=== PATIENT | female | born 2000 | race Caucasian/White ===

== ENCOUNTER 2020-04-03 23:32 | Inpatient (IN) | payer MEDICAID ==
[~2020-04-03] VITALS: Ht 160 cm; Wt 54.5 kg
[2020-04-04] VITALS (9 sets, daily range): BP systolic 93–109; BP diastolic 50–69
[2020-04-04] MEDS ORDERED: LAMO100T PO (00:08)
[2020-04-04] MEDS ORDERED: normal saline 1000ML IV soln IV ONE (00:10)
[2020-04-04] MEDS ORDERED: tamsulosin 0.4mg capsule PO SCH (00:10)
[2020-04-04] MEDS ORDERED: tamsulosin 0.4mg capsule PO ONE (00:10)
[2020-04-04] MEDS ORDERED: meperidine/PF 50mg/ml syringe IV PRN (00:10)
[2020-04-04] MEDS ORDERED: acetaminophen 325mg tablet PO PRN (00:15)
[2020-04-04] MEDS ORDERED: magnesium 4gm in 100ml NS 100 ML IV PRN (00:15)
[2020-04-04] MEDS ORDERED: magnesium Cl slow-release 64mg tablet PO PRN (00:15)
[2020-04-04] MEDS: normal saline 1000ml 1,000 ML IV SCH ×3 (00:15→20:15)
[2020-04-04] MEDS ORDERED: magnesium 2GM in 50ml NS 50 ML IV PRN (00:15)
[2020-04-04] MEDS ORDERED: ondansetron/PF 4mg/2ml inj IV PRN ×2 (00:15→13:10)
[2020-04-04] MEDS ORDERED: potassium CL 10mEq/100ml bag 100 ML IV PRN ×2 (00:15)
[2020-04-04] MEDS ORDERED: magnesium hydroxide 30ml (MOM) UD suspension PO PRN (00:15)
[2020-04-04] MEDS ORDERED: mag hydrox/Alum hydrox/simeth 30ml oral suspension PO PRN (00:15)
[2020-04-04] MEDS ORDERED: potassium Cl 20 mEq SR tablet PO PRN ×2 (00:15)
[2020-04-04 00:37] LABS: BASOPHILS % (AUTO) 0.3 % (0-1); EOSINOPHILS % (AUTO) 0.2 % (0-6); HEMATOCRIT 32.7 % (35.0-45.0); HEMOGLOBIN 10.9 g/dl (12.0-16.0); LYMPHOCYTES # (AUTO) 1.7 X10'3 (1.1-4.8); LYMPHOCYTES % (AUTO) 15.9 % (21-51); MEAN CORPUSCULAR HEMOGLOBIN 29.3 PG (27.0-31.0); MEAN CORPUSCULAR HGB CONC 33.4 g/dL (33.0-36.5); MEAN CORPUSCULAR VOLUME 87.8 FL (78-98); MONOCYTES # (AUTO) 0.9 X10'3 (0-0.9); MONOCYTES % (AUTO) 8.4 % (2-12); NEUTROPHILS # (AUTO) 8.1 X10'3 (1.8-7.7); NEUTROPHILS % (AUTO) 75.2 % (42-75); PLATELET COUNT 269 X10'3 (140-440); RED BLOOD COUNT 3.72 X10'6 (4.20-5.60); RED CELL DISTRIBUTION WIDTH 13.1 % (11.5-14.5); WHITE BLOOD COUNT 10.7 X10'3 (4.5-11.0)
[2020-04-04 00:52] LABS: ALANINE AMINOTRANSFERASE 11 U/L (12-78); ALBUMIN/GLOBULIN RATIO 0.9 (1.1-1.5); ALKALINE PHOSPHATASE 68 IU/L (46-116); ANION GAP 9 (8-16); ASPARTATE AMINO TRANSFERASE 11 U/L (10-37); BILIRUBIN,TOTAL 0.8 MG/DL (0.1-1.0); BLOOD UREA NITROGEN 8 MG/DL (7-18); BUN/CREATININE RATIO 13.3 (6.6-38.0); CALCIUM 8.1 MG/DL (8.5-10.1); CHLORIDE 102 MMOL/L (99-107); GLUCOSE 85 MG/DL (70-104); MAGNESIUM 1.6 MG/DL (1.5-2.4); POTASSIUM 3.4 MMOL/L (3.5-5.1); SODIUM 134 MMOL/L (135-145); TOTAL CARBON DIOXIDE 22.7 MMOL/L (24-32); TOTAL PROTEIN 6.4 G/DL (6.4-8.2); eGFR > 90 ML/MIN
[2020-04-04 01:00] LABS: CLARITY,URINE CLEAR (Clear); COLOR,URINE YELLOW (Yellow); GLUCOSE, URINE NEGATIVE (Neg); KETONES,URINE >=80 mg/dl (Neg); LEUKOCYTE ESTERASE ,URINE MODERATE (Neg); NITRITES, URINE NEGATIVE (Neg); OCCULT BLOOD,URINE SMALL (Neg); PROTEIN,URINE NEGATIVE (Neg); UROBILINOGEN,URINE 0.2 E.U/dL (0.2-1.0)
[2020-04-04 01:02] LABS: UA COLLECTION TYPE CLN CATCH MIDSTREAM
[2020-04-04 01:08] LABS: BACTERIA,URINE 2+ /HPF (Neg); MUCUS STRANDS MODERATE /LPF (Neg); RBC,URINE 0-2 /HPF (0-2); SQUAMOUS EPITHELIAL CELL,UR FEW /LPF (FEW); WBC,URINE TNTC /HPF (0-4)
[2020-04-04] MEDS ORDERED: potassium Cl 10 mEq/100mL bag IV ONE (01:20)
[2020-04-04] MEDS ORDERED: magnesium 2GM in 50ml NS 50 ML IV ONE (01:20)
[2020-04-04] MEDS: K and/or MAG REPLACEMENT MC SCH ×2 (08:00→20:00)
[2020-04-04] MEDS: lamoTRIgine 100mg tablet PO SCH (08:00)
[2020-04-04] MEDS: CefTRIAXone/D5W-Rocephin 1gm 50 ML IV SCH (08:18)
[2020-04-04 10:34] LABS: PARTIAL THROMBOPLASTIN TIME 33 SECONDS (22-32)
--- NOTE | 2020-04-04 10:36 | NUR ---
Attempted to get report from ER on patient. Nurse is busy and will call back.
[2020-04-04] MEDS: HYDROmorphone inj. 0.5 MG/0.5 ML DISP.SYRIN IV PRN (11:37)
[2020-04-04] MEDS ORDERED: normal saline 1000ml 1,000 ML IV ONE (12:40)
[2020-04-04] MEDS ORDERED: ringers solution, lacted 1,000 ML IV SCH (13:10)
[2020-04-04] MEDS ORDERED: proCHLORperazine 10 MG/2 ml inj IV PRN (13:10)
[2020-04-04] MEDS ORDERED: meperidine/PF 25mg/ml syringe IV PRN ×3 (13:10)
[2020-04-04] MEDS ORDERED: morphine 2 MG/ML inj. syringe IV PRN (13:10)
[2020-04-04] MEDS ORDERED: morphine 4 MG/ML inj SYRINge IV PRN (13:10)
[2020-04-04 13:47] LABS: PREOP URINE HCG NEGATIVE (NEGATIVE)
--- NOTE | 2020-04-04 14:09 | NUR ---
Urine sample obtained and sent to lab.
[2020-04-04] MEDS ORDERED: iohexol 300 MG/1 ML 50ml polymer ONE (14:32)
[2020-04-04] MEDS ORDERED: fentaNYL/PF 50MCG/1 ML 2ML syringe ONE (15:19)
[2020-04-04] MEDS ORDERED: midazolam 2 mg/2 ml injection ONE (15:19)
[2020-04-04] MEDS ORDERED: propofol inj 20 ML IV ONE (15:52)
[2020-04-04] MEDS ORDERED: LIDOcaine 2% (20mg/ml) 5ml vial ONE (15:52)
--- NOTE | 2020-04-04 16:37 | NUR ---
RECEIVED FROM OR VIA BED ACCOMPANIED BY ANESTHESIOLOGIST DR BOSTON, REPORT GIVEN. PT DROWSY BUT AROUSES WITH NO COMPLAINT OF PAIN. 18 GAUGE PIV R AC PATENT AND RUNNING LR AT 25 ML/HR. BAUTISTA,ABD SOFT, PPULSES PALPABLE, BRISK CAP REFILL, SKIN PINK AND WARM, SCDS APPLIED, VSS, RESTING COMFORTABLY.
--- NOTE | 2020-04-04 17:22 | NUR ---
Patient arrived on the unit from OR
--- NOTE | 2020-04-04 17:27 | NUR ---
TRANSPORTED VIA BED ACCOMPANIED BY MYSELF, REPORT GIVEN. PT AWAKE AND ALERT WITH NO COMPLAINT OF PAIN. 20 GAUGE PIV R FA PATENT AND RUNNING LR AT 100 ML/HR. LG BANDAID DRESSEING X 3 ABD CDI, ABD SOFT. BAUTISTA, PPULSES PALPABLE, BRISK CAP REFILL, SKIN PINK AND WARM. RESTING COMFORTABLY. LEFT IN CARE OF SURGICAL STAFF WITH SIG OTHER IN THE ROOM.
--- NOTE | 2020-04-04 17:37 | NUR ---
BM at home before surgery Addendum: 04/04/20 at 1738 by Teagan Grigsby RN Amended: Links added.
--- NOTE | 2020-04-04 18:28 | NUR ---
Problems reprioritized. Patient report given, questions answered & plan of care reviewed with Beronica MCKEON.
--- NOTE | 2020-04-04 18:30 | NUR ---
Patient in room [facility]. I have received report from Teagan and had the opportunity to ask questions and assume patient care. Pt A&O no complaints. Spouse at bedside. iv patent. Addendum: 04/04/20 at 1848 by Edward Ridley RN Amended: Links added.
[2020-04-05] VITALS: BP 105/69
[2020-04-05] MEDS: HYDROmorphone inj. 0.5 MG/0.5 ML DISP.SYRIN IV PRN ×2 (00:35→09:32)
[2020-04-05] MEDS: normal saline 1000ml 1,000 ML IV SCH (04:18)
[2020-04-05 05:56] LABS: BASOPHILS % (AUTO) 0.2 % (0-1); EOSINOPHILS % (AUTO) 0 % (0-6); HEMATOCRIT 35.4 % (35.0-45.0); HEMOGLOBIN 11.9 g/dl (12.0-16.0); LYMPHOCYTES # (AUTO) 0.5 X10'3 (1.1-4.8); LYMPHOCYTES % (AUTO) 8.3 % (21-51); MEAN CORPUSCULAR HEMOGLOBIN 29.5 PG (27.0-31.0); MEAN CORPUSCULAR HGB CONC 33.6 g/dL (33.0-36.5); MEAN CORPUSCULAR VOLUME 87.7 FL (78-98); MEAN PLATELET VOLUME 8.5 FL (7.4-10.4); MONOCYTES # (AUTO) 0.2 X10'3 (0-0.9); MONOCYTES % (AUTO) 3.6 % (2-12); NEUTROPHILS # (AUTO) 5.7 X10'3 (1.8-7.7); NEUTROPHILS % (AUTO) 87.9 % (42-75); PLATELET COUNT 294 X10'3 (140-440); RED BLOOD COUNT 4.03 X10'6 (4.20-5.60); RED CELL DISTRIBUTION WIDTH 13.7 % (11.5-14.5); WHITE BLOOD COUNT 6.5 X10'3 (4.5-11.0)
[2020-04-05 06:19] LABS: ALANINE AMINOTRANSFERASE 14 U/L (12-78); ALBUMIN/GLOBULIN RATIO 0.7 (1.1-1.5); ALKALINE PHOSPHATASE 76 IU/L (46-116); ANION GAP 13 (8-16); ASPARTATE AMINO TRANSFERASE 12 U/L (10-37); BILIRUBIN,TOTAL 0.3 MG/DL (0.1-1.0); BLOOD UREA NITROGEN 7 MG/DL (7-18); CHLORIDE 106 MMOL/L (99-107); GLUCOSE 133 MG/DL (70-104); POTASSIUM 4.5 MMOL/L (3.5-5.1); SODIUM 138 MMOL/L (135-145); TOTAL CARBON DIOXIDE 19.5 MMOL/L (24-32); TOTAL PROTEIN 7.1 G/DL (6.4-8.2); eGFR > 90 ML/MIN
--- NOTE | 2020-04-05 06:29 | NUR ---
Problems reprioritized. Patient report given, questions answered & plan of care reviewed with LINDA Longoria. Addendum: 04/05/20 at 0629 by Edward Ridley RN Amended: Links added.
--- NOTE | 2020-04-05 06:36 | NUR ---
Patient in room [facility]. I have received report from Beronica MCKEON and had the opportunity to ask questions and assume patient care.
[2020-04-05] MEDS: K and/or MAG REPLACEMENT MC SCH (07:20)
[2020-04-05 07:35] VITALS: BP 104/55
[2020-04-05] MEDS: CefTRIAXone/D5W-Rocephin 1gm 50 ML IV SCH (07:39)
[2020-04-05] MEDS: lamoTRIgine 100mg tablet PO SCH (07:39)
[2020-04-05 10:55] VITALS: BP 107/51
[2020-04-05] MEDS ORDERED: LEVO500T89 PO (11:04)
[2020-04-05] MEDS ORDERED: HYDR-4383 PO (11:12)
[2020-04-05] MEDS ORDERED: FLO0.4C PO (11:12)
--- NOTE | 2020-04-05 11:45 | NUR ---
Patient discharged with all belongings. Discharge paperwork gone over with patient and significant other at bedside. Patient was given the opportunity to ask questions. IV taken out. Pt walked to front lobby with PCT. Significant other to drive pt home.
== END 2020-04-05 11:39 | disposition home or self-care (01) | DRG 720 ==
LOC: ER 23:34 → ED HOLD 04-04 00:13 → SUR 3N 04-04 10:59
PROVIDERS: ADMIT Family Medicine; ATTEND Family Medicine
PROC: BT1D1ZZ Fluoroscopy of Right Kidney, Ureter and Bladder using Low Osmolar Contrast (ICD-10-PCS; 2020-04-04)
PROC: 0T768DZ Dilation of Right Ureter with Intraluminal Device, Via Natural or Artificial Opening Endoscopic (ICD-10-PCS; principal; 2020-04-04 15:42)
DX: A41.9 Sepsis, unspecified organism (principal); N13.6 Pyonephrosis; E87.1 Hypo-osmolality and hyponatremia; E87.6 Hypokalemia; D64.9 Anemia, unspecified; F12.90 Cannabis use, unspecified, uncomplicated; F31.9 Bipolar disorder, unspecified; Z87.442 Personal history of urinary calculi; Z87.891 Personal history of nicotine dependence; Z20.828 Contact with and (suspected) exposure to other viral communicable diseases
CPT/HCPCS: 36415; 76000; 80053; 81001; 81025; 83605; 83735; 84145; 85025; 85610; 85730; 87040; 87081; 87088; 87635; 93005; 96374; 99285; A4618; C1758; C1769; C2617; G0378; J0696; J1170; J2001; J2175; J2250; J2704; J3010; J3475; J3480; J7030; Q9967